=== PATIENT | female | born 1995 | race Native Hawaiian/Other Pacific Islander ===

== ENCOUNTER 2017-04-06 23:39 | Emergency (ER) | payer SELFPAY ==
[2017-04-07 00:46] VITALS: BP 96/68
[2017-04-07] MEDS ORDERED: MOTRIN PO ONE (00:47)
[2017-04-07 02:10] LABS: Bacteria,Urine 2+ /HPF (Negative); Bilirubin,Urine NEG (Negative); Blood,Urine NEG (Negative); Color,Urine Yellow (Yellow); Mucus,Urine 2+ /HPF; Nitrite,Urine NEG (Negative); Protein,Urine <15 mg/dL mg/dL (Negative)
[2017-04-07 02:11] LABS: HCG Qualitative,Urine Negative (Negative)
--- NOTE | 2017-04-07 02:29 | XRay Report ---
FINAL REPORT EXAM: XR CHEST ROUTINE 2V HISTORY: cough and fever TECHNIQUE: PA and lateral views of the chest were submitted. FINDINGS: The lungs are clear. The heart size is normal. Pleural fluid is not seen. The bones and soft tissues are well maintained. IMPRESSION: No active chest disease.
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
== END 2017-04-07 04:40 | disposition home or self-care (01) ==
LOC: ED 23:39
DX: J06.9 Acute upper respiratory infection, unspecified (principal); J09.X2 Influenza due to identified novel influenza A virus with other respiratory manifestations
CPT/HCPCS: 71046; 81001; 81025; 87116; 87400; 87430; 99284